=== PATIENT | female | born 1985 | race Caucasian/White ===

== ENCOUNTER 2018-07-27 19:48 | Emergency (ER) | payer BC, OTHER ==
[2018-07-27] MEDS ORDERED: fentaNYL* 50 MCG/ML 2 ML VIAL (100 MCG VIAL) IV SLOW PU ONE ×2 (20:15→20:51)
[2018-07-27] MEDS ORDERED: Ketorolac INJ* 30 MG/ML 1 ML VIAL IV PUSH ONE (20:15)
--- NOTE | 2018-07-27 20:15 | ED ---
Abdominal Pain/Female - HPI Summary HPI Summary: This patient is a 33 year old F presenting to [facility] with a chief complaint of sharp stabbing RLQ pain since 19:20 today. The patient rates the pain 8/10 in severity. Patient reports nausea, diaphoresis, and blurred vision. Patient denies vomiting. Her next period is due in 4 days. She is on no medications or control. Last BM was this morning. Patient took 2 ibuprofen 1 hour ago which has not alleviated her symptoms. She reports no PSHx and reports that morphine causes her to vomit. - History of Current Complaint Chief Complaint: EDAbdPain Stated Complaint: ABD/FLANK PAIN Time Seen by Provider: 07/27/18 20:08 Hx Obtained From: Patient Hx Last Menstrual Period: 09/26/16 Onset/Duration: Sudden Onset - 19:20 today, Lasting Minutes, Still Present Timing: Constant Severity Initially: Severe Severity Currently: Severe Pain Intensity: 8 Pain Scale Used: 0-10 Numeric Location: Discrete At: RLQ Character: Sharp, Other: - "Stabbing" Associated Signs and Symptoms: Positive: Diaphoresis, Nausea, Other: - Blurred vision. Negative: Vomiting Allergies/Adverse Reactions: Allergies Allergy/AdvReac Type Severity Reaction Status Date / Time No Known Allergies Allergy Verified 10/16/16 18:02 PMH/Surg Hx/FS Hx/Imm Hx Endocrine/Hematology History: Denies: Hx Diabetes, Hx Thyroid Disease Cardiovascular History: Denies: Hx Hypertension Respiratory History: Denies: Hx Asthma, Hx Chronic Obstructive Pulmonary Disease (COPD) GI History: Denies: Hx Ulcer Psychiatric History: Reports: Hx Anxiety - has prn xanax Infectious Disease History: No Infectious Disease History: Denies: Hx Hepatitis, Hx Human Immunodeficiency Virus (HIV), Traveled Outside the [place] in Last 30 Days - Family History Known Family History: Positive: Other - Cancer Negative: Cardiac Disease, Hypertension, Diabetes - Social History Occupation: Employed Full-time Alcohol Use: Weekly Substance Use Type: Reports: None Smoking Status (MU): Never Smoked Tobacco Review of Systems Positive: Skin Diaphoresis Positive: Blurred Vision Positive: Abdominal Pain - Sharp, stabbing, RLQ pain, Nausea. Negative: Vomiting All Other Systems Reviewed And Are Negative: Yes Physical Exam - Summary Physical Exam Summary: VITAL SIGNS: Reviewed. GENERAL: Patient is a well-developed and nourished FEMALE who is lying comfortable in the stretcher. Patient is not in any acute respiratory distress. HEAD AND FACE: No signs of trauma. No ecchymosis, hematomas or skull depressions. No sinus tenderness. EYES: PERRLA, EOMI x 2, No injected conjunctiva, no nystagmus. EARS: Hearing grossly intact. Ear canals and tympanic membranes are within normal limits. MOUTH: Oropharynx within normal limits. NECK: Supple, trachea is midline, no adenopathy, no JVD, no carotid bruit, no c- spine tenderness, neck with full ROM. CHEST: Symmetric, no tenderness at palpation LUNGS: Clear to auscultation bilaterally. No wheezing or crackles. CVS: Regular rate and rhythm, S1 and S2 present, no murmurs or gallops appreciated. ABDOMEN: Soft. Bilateral lower pelvic tenderness, right more than left. No signs of distention. No rebound no guarding, and no masses palpated. Bowel sounds are normal. EXTREMITIES: FROM in all major joints, no edema, no cyanosis or clubbing. NEURO: Alert and oriented x 3. No acute neurological deficits. Speech is normal and follows commands. SKIN: Dry and warm Triage Information Reviewed: Yes Vital Signs On Initial Exam: Initial Vitals Temp Pulse Resp BP Pulse Ox 97.5 F 68 16 88/50 100 07/27/18 19:50 07/27/18 19:50 07/27/18 19:50 07/27/18 19:50 07/27/18 19:50 Vital Signs Reviewed: Yes Diagnostics - Vital Signs Vital Signs Temp Pulse Resp BP Pulse Ox 07/27/18 19:50 97.5 F 68 16 88/50 100 - Laboratory Result Diagrams: 07/27/18 20:22 07/27/18 20:22 Lab Statement: Any lab studies that have been ordered have been reviewed, and results considered in the medical decision making process. - Ultrasound No standard instances Ultrasound Interpretation Completed By: Radiologist - Transvaginal US, 21:56. 1. No ovarian torsion. 2. Probable right ovarian hemorrhagic cyst. 3. Moderate pelvic free fluid. ED Physician has reviewed this imaging report. Abdominal Pain Fem Course/Dx - Course Course Of Treatment: This patient is a 33 year old F presenting to [facility] with a chief complaint of sharp stabbing RLQ pain since 19:20 today. The patient rates the pain 8/10 in severity. Patient reports nausea, diaphoresis, and blurred vision. Patient denies vomiting. Her next period is due in 4 days. She is on no medications or control. Last BM was this morning. Patient took 2 ibuprofen 1 hour ago which has not alleviated her symptoms. She reports no PSHx and reports that morphine causes her to vomit. The transvaginal US, read 21:56 revealed: 1. No ovarian torsion. 2. Probable right ovarian hemorrhagic cyst. 3. Moderate pelvic free fluid. Patient was discharged home with a dx of an ovarian cyst. She has been given ibuprofen and oxycodone for pain. I have instructed her to follow up with Dr. Tabor from [facility] tomorrow. - Diagnoses Provider Diagnoses: Ovarian cyst Discharge - Sign-Out/Discharge Documenting (check all that apply): Patient Departure - Discharge Plan Condition: Stable Disposition: HOME Prescriptions: Ibuprofen TAB* [Motrin TAB* 800 MG] 800 mg PO Q6H PRN #30 tab PRN Reason: Pain oxyCODONE/Acetamin 5/325 MG* [Percocet 5/325 TAB*] 1 tab PO Q6H PRN #14 tab MDD 4 PRN Reason: Pain Patient Education Materials: Ovarian Cyst (ED) Referrals: Otilia Varma MD [Primary Care Provider] - 3 Days Gypsy Tabor MD [Medical Doctor] - 1 Day (Follow up with [facility] tomorrow.) Additional Instructions: RETURN TO THE EMERGENCY DEPARTMENT FOR CHANGING OR WORSENING SYMPTOMS. FOLLOW UP WITH PCP IN 1-2 DAYS. - Attestation Statements Document Initiated by Scribe: Yes Documenting Scribe: Isreal Paredes Provider For Whom Scribe is Documenting (Include Credential): Jorge Maciel MD Scribe Attestation: Isreal Vasquez, scribed for Jorge Maciel MD on 07/27/18 at 2320.
[2018-07-27] MEDS ORDERED: NS 0.9% 1000 ML* 1,000 ML IV ONE (20:16)
[2018-07-27] MEDS ORDERED: Metoclopramide IV* 5 MG/ML 2 ML VIAL IV SLOW PU ONE (20:16)
[2018-07-27 20:29] LABS: ABS Basophils 0.1 10^3/ul (0-0.2); ABS Eosinophils 0.1 10^3/ul (0-0.6); ABS Monocytes 0.4 10^3/ul (0-0.8); ABS Neutrophils 2.8 10^3/ul (1.5-7.7); ABS Nucleated RBC 0 10^3/ul; Eosinophil % 1.8 % (0-6); Hematocrit 38 % (35-47); Hemoglobin 13.3 g/dl (12.0-16.0); Lymphocyte % 37.8 % (25-47); Mean Corpuscular HGB Conc 35 g/dl (31-36); Mean Corpuscular Hemoglobin 31 pg (27-31); Mean Corpuscular Volume 89 fL (80-97); Nucleated Red Blood Cells % 0.2; Platelet Count 198 10^3/ul (150-450); Red Blood Count 4.28 10^6/ul (4.00-5.40); Red Cell Distribution Width 13 % (10.5-15); White Blood Count 5.4 10^3/ul (3.5-10.8)
[2018-07-27 20:51] LABS: EGFR Non-African American 77.5 (>60)
--- NOTE | 2018-07-27 21:56 | RAD ---
EXAM: US Pelvis, Transvaginal US Duplex Arterial/Venous of the Pelvis, Complete CLINICAL HISTORY: 33 years old, female; Pain; Pelvic pain; Additional info: Pelvic pain, R/O torsion TECHNIQUE: Real-time transvaginal pelvic ultrasound (complete) with image documentation. Transvaginal imaging was used for better evaluation of the endometrium and adnexa. Real-time duplex ultrasound scan of the arterial and venous flow of the pelvis with color Doppler flow and spectral waveform analysis. COMPARISON: No relevant prior studies available. FINDINGS: Limitations: The study was limited by bowel gas. Uterus/cervix: The uterus measures 7.4 x 3.8 x 3.9 cm. The endometrial stripe measures 7 mm, within normal limits. No myometrial mass. Right ovary: The right ovary measures 6.4 x 3.2 x 4.1 cm and contains a 2.5 x 1.8 x 2.2 cm hypoechoic structure with internal echoes likely representing a hemorrhagic cyst. Normal arterial waveforms. No torsion. Left ovary: The left ovary measures 3.4 x 1.5 x 2.2 cm. Normal arterial waveforms. No torsion. Free fluid: Moderate free fluid in the pelvis. Bladder: Empty bladder which cannot be evaluated with this probe. IMPRESSION: 1. No ovarian torsion. 2. Probable right ovarian hemorrhagic cyst. 3. Moderate pelvic free fluid.
[2018-07-27] MEDS ORDERED: Morphine INJ* 2 MG/ML 1 ML SYRINGE (TWO MG - NEW SYRINGE VERSION) IV ONE ×2 (22:01→22:05)
[2018-07-27] MEDS ORDERED: Morphine INJ* 4 MG/ML 1 ML SYRINGE (NEW SYRINGE VERSION) ONE (22:03)
[2018-07-27 23:12] VITALS: BP 105/61
== END 2018-07-27 23:11 | disposition home or self-care (01) ==
LOC: ED 19:48
DX: N83.209 Unspecified ovarian cyst, unspecified side (principal); R10.31 Right lower quadrant pain; R11.0 Nausea; H53.8 Other visual disturbances
CPT/HCPCS: 36415; 76830; 80053; 83605; 84702; 85025; 86140; 96374; 96375; 99283; J1885; J2270; J2765; J3010

== ENCOUNTER 2019-03-31 08:26 | Inpatient (IN) | payer OTHER ==
--- NOTE | 2019-03-31 09:29 | PN ---
L&D Outpatient: Visit - Reproductive Information Estimated Due Date: 05/11/19 Gestational Age: 34 Weeks and 1 Days : 2 Para: 0 - Reason for Visit Visit Reason: ? rom/ gush at 0730 followed by leaking - Antepartal Records Antepartal Record: Reviewed, Uncomplicated - Patient History Patient History Significant For: depression / anxiety Review of Systems Constitutional: Comfortable CV Complaint: No Respiratory: Shortness of Breath: No Gastrointestinal: No Nausea/Vomiting Genitourinary: Leaking Fluid, No Bleeding Musculoskeletal: No Complaint Neurological: No Headache Movement: Normal L&D Outpatient: Exam - Abdominal Exam Abdomen Exam: Non-Tender - Membranes Membrane Status: Possible SROM/Pending - Ultrasound/Biophysical Profile Ultrasound Status: Not Done EFM Findings - External Monitor Findings Baseline Heart Rate: 135 External Monitor Findings: Accelerations Present, Variability Moderate Contractions: Irregular, Mild, < 45 Seconds L&D Outpatient: Asses/Plan Assessment: r/o pprom Plan: Admit as Inpatient - 34 weeks PPROM
[2019-03-31] MEDS ORDERED: Azithromycin TAB* 250 MG PO ONE (09:43)
[2019-03-31] MEDS ORDERED: Betamethasone INJ* 6 MG/ML 5 ML VIAL (30 MG) IM ONE (09:44)
[2019-03-31] MEDS ORDERED: Buffered Lidocaine 1% SYRIN* 1 ML/SYRINGE INTRADERM ONE (09:47)
[2019-03-31] MEDS ORDERED: Lactated Ringers 1000 ML Bag* 1,000 ML IV ONE (09:47)
[2019-03-31] MEDS: Ampicillin ADVAN(*) 2 GM in NS 0.9% 100 ML* 100 ML IVPB SCH ×3 (10:15→22:22)
--- NOTE | 2019-03-31 10:15 | HP ---
General Information - Reason for Visit gush of fluid at 0730 - General Information Maternal Age: 33 Grav: 2 Para: 0 SAB: 1 Estimated Due Date: 05/11/19 Determined By: LMP Maternal Blood Type and Rh: B Positive - Results this Serology/RPR Result: Non-Reactive Rubella Result: Immune HBsAg Result: Negative HIV Result: Negative Past Medical History Pertinent Past Medical History: See Records - anxiety/ depression Pertinent Past Surgical History: None Pertinent Family History: Non-Contributory - Antepartal Records Antepartal Records: Reviewed, Uncomplicated Review of Systems Constitutional: Comfortable Gastrointestinal: No Nausea/Vomiting Genitourinary: Leaking Fluid Musculoskeletal: No Complaint Neurological: No Headache Movement: Normal Exam Allergies/Adverse Reactions: Allergies No Known Allergies Allergy (Verified 10/16/16 18:02) Lab Values - Entire Visit: Laboratory Tests 03/31/19 08:50 Vag Amniotic Fld Detect Positive - Exam Breast: Breast Exam Deferred Extremities: No Edema Heart: Normal Rhythm/Heart Sounds HEENT: No Significant Findings Lungs: Clear Bilaterally Rectal: Rectal Exam Deferred Reflexes: DTR 2+ Targeted Exam Findings See L&D Outpatient Visit Provider Note for Findings: Yes - ultrasound shows S=D on ac and FL. vertex too low to get accurate bpd or AC vertex presenting bpp 10/ 10 fluid is low normal c/w pprom +tone + gross movement + fbm Estimated Weight: 2200 gms Presenting Part: Vertex Membrane Status: Leaking Amniotic Fluid Evaluation: Positive ROM Plus EFM Findings - External Monitor Findings Baseline Heart Rate: 135 External Monitor Findings: Variability Moderate Contractions: Regular, Mild, < 45 Seconds Assessment/Plan - Assessment 34 + weeks with PPROM/ - Obstetrical Risk Factors Obstetrical Risk Factors: GBS Unknown - Plan Plan: Antibiotic Prophylaxis - azithromycin and ampicilin for now , Steroids - discussed option with pt and recommend course with delay in induction for 48 hrs Plan Comment: discussed risk of infection with delay however would recommend steroid and induction after 48 hrs
[2019-03-31 10:33] LABS: ABS Eosinophils 0.1 10^3/ul (0-0.6); ABS Lymphocytes 1.8 10^3/ul (1.0-4.8); ABS Monocytes 0.9 10^3/ul (0-0.8); ABS Neutrophils 6.9 10^3/ul (1.5-7.7); Eosinophil % 0.7 %; Hematocrit 33 % (35-47); Hemoglobin 11.3 g/dL (12.0-16.0); Lymphocyte % 18.2 %; Mean Corpuscular HGB Conc 34 g/dL (31-36); Mean Corpuscular Hemoglobin 30 pg (27-31); Mean Corpuscular Volume 89 fL (80-97); Mean Platelet Volume 7.4 fL (7.4-10.4); Platelet Count 310 10^3/uL (150-450); Red Blood Count 3.71 10^6 /uL (3.70-4.87); Red Cell Distribution Width 12 % (10.5-15); White Blood Count 9.7 10^3/uL (3.5-10.8)
[2019-03-31] MEDS: Lactated Ringers 1000 ML Bag* 1,000 ML IV SCH (16:12)
[2019-04-01] MEDS ORDERED: OBEPIDURAL* 250 ML EPIDURAL ONE ×2 (02:05→03:05)
[2019-04-01] MEDS ORDERED: Lactated Ringers 1000 ML Bag* 500 ML IV PRN ×2 (03:25)
[2019-04-01] MEDS ORDERED: Phenylephrine 40 MCG/ML SYRINGE IV PUSH PRN ×2 (03:25)
[2019-04-01] MEDS ORDERED: EPHEDrine (Pressors)* 50 MG/ML VIAL IV PUSH PRN ×2 (03:25)
[2019-04-01] MEDS ORDERED: Famotidine TAB* 20 MG PO PRN (03:25)
[2019-04-01] MEDS ORDERED: Lactated Ringers 1000 ML Bag* 1,000 ML IV ONE (03:25)
[2019-04-01] MEDS ORDERED: Sodium Citrate/Citric Acid* 15 ML UDC PO PRN (03:25)
[2019-04-01] MEDS ORDERED: OBEPIDURAL* 250 ML EPIDURAL SCH (04:00)
[2019-04-01] MEDS ORDERED: Lactated Ringers 1000 ML Bag* 1,000 ML IV SCH ×2 (04:00→07:00)
[2019-04-01] MEDS: Lactated Ringers 1000 ML Bag* 1,000 ML IV SCH (04:16)
[2019-04-01] MEDS: Ampicillin ADVAN(*) 2 GM in NS 0.9% 100 ML* 100 ML IVPB SCH (04:18)
[2019-04-01] MEDS ORDERED: Oxytocin in LR* 20 UNITS/1,000 ML BAG IVPB ONE (06:00)
[2019-04-01] MEDS ORDERED: Glycerin ADULT SUPP PR PRN (06:16)
[2019-04-01] MEDS ORDERED: Acetaminophen TAB* 325 MG PO PRN (06:16)
[2019-04-01] MEDS ORDERED: Witch Hazel PAD* JAR TOPICAL PRN (06:16)
[2019-04-01] MEDS ORDERED: Dibucaine 1% 28.35 GM TUBE PR PRN (06:16)
[2019-04-01] MEDS ORDERED: Oxytocin in LR* 20 UNITS/1,000 ML BAG IVPB SCH (07:00)
[2019-04-01] MEDS ORDERED: Simethicone TAB* 80 MG TAB.CHEW PO SCH (08:30)
[2019-04-01] MEDS: Docusate CAP* 100 MG PO SCH ×3 (09:34→21:00)
--- NOTE | 2019-04-01 09:50 | PROCNOTE ---
[facility] OB: Delivery Note - Delivery A Date of : 04/01/19 Time of : 06:01 Weight at : 5 lb 10 oz Score 1 Minute: 9 Score 5 Minutes: 10 Gestational Age in Weeks and Days at Delivery: 34 Weeks and 2 Days Delivery Method: Spontaneous Vaginal Labor: Spontaneous Did Patient attempt ?: N/A, No Previous Amniotic Fluid: Clear Estimated Blood Loss: 100 Anesthesia/Analgesia: CEI for Labor Delivered By: Simone Griffith Nursery Level of Nursery: Regular/Bedside - Perineum Perineal Injury: None/Intact Perineal Injury Comment: taught self care Perineal Repair: None - Events Delivery Events of Note: Pitocin Only After Delivery, Full Course of Antibiotics , Steriods Given for Lung Maturity - Additional Delivery Notes Additional Delivery Notes: pt pushed well with controlled delivery nuchal cord x 1 Nicu called but delivery prior to arrival after short interval of pushing fhr reassuring throughout
--- NOTE | 2019-04-01 13:15 | PTEDU ---
Patient Name: MILANA CAST MILANA CAST selected video: BBOB: Nurturing Your Gorgeous &Growing Baby by to view on 04/01/2019 at 1:14:25 PM from [id number]
[2019-04-01] MEDS: Ibuprofen TAB* 600 MG PO PRN (16:16)
[2019-04-02] MEDS: Ibuprofen TAB* 600 MG PO PRN ×3 (02:51→18:50)
[2019-04-02 07:54] LABS: ABS Basophils 0.1 10^3/ul (0-0.2); ABS Lymphocytes 2.4 10^3/ul (1.0-4.8); ABS Monocytes 1.4 10^3/ul (0-0.8); ABS Neutrophils 8.1 10^3/ul (1.5-7.7); Eosinophil % 0.4 %; Hematocrit 28 % (35-47); Hemoglobin 9.5 g/dL (12.0-16.0); Lymphocyte % 19.7 %; Mean Corpuscular HGB Conc 34 g/dL (31-36); Mean Corpuscular Hemoglobin 30 pg (27-31); Mean Corpuscular Volume 89 fL (80-97); Platelet Count 300 10^3/uL (150-450); Red Blood Count 3.19 10^6 /uL (3.70-4.87); Red Cell Distribution Width 12 % (10.5-15)
[2019-04-02] MEDS: Ferrous Gluconate TAB* 324 MG TAB PO SCH ×2 (08:58→21:39)
[2019-04-02] MEDS: Docusate CAP* 100 MG PO SCH ×3 (08:58→21:39)
[2019-04-03] MEDS: Ibuprofen TAB* 600 MG PO PRN ×2 (06:44→21:17)
[2019-04-03] MEDS: Ferrous Gluconate TAB* 324 MG TAB PO SCH ×2 (08:04→21:18)
[2019-04-03] MEDS: Docusate CAP* 100 MG PO SCH ×3 (08:04→21:18)
[2019-04-03 20:13] VITALS: BP 120/69
== END 2019-04-03 16:50 | disposition home or self-care (01) | DRG 807 ==
LOC: MCHOBOUT 08:26 → MCHOB 09:44
PROVIDERS: ADMIT Obstetrics & Gynecology; ATTEND Obstetrics & Gynecology
PROC: 10E0XZZ Delivery of Products of Conception, External Approach (ICD-10-PCS; principal; 2019-04-01)
DX: O42.013 Preterm premature rupture of membranes, onset of labor within 24 hours of rupture, third trimester (principal); Z37.0 Single live birth; O99.344 Other mental disorders complicating childbirth; F41.8 Other specified anxiety disorders; O69.81X0 Labor and delivery complicated by cord around neck, without compression, not applicable or unspecified; Z3A.34 34 weeks gestation of pregnancy
CPT/HCPCS: 36415; 76815; 84112; 85025; 86850; 86900; 86901; 87070; 88307; A9270-GY; J0702